=== PATIENT | female | born 1990 | race Caucasian/White ===

== ENCOUNTER 2024-02-17 14:47 | Emergency (ER) | payer OTHER, SELFPAY ==
[2024-02-17] MEDS ORDERED: Dicyclomine 20 MG TAB ONE (16:00)
[2024-02-17] MEDS ORDERED: Ondansetron ODT 4 MG TAB ONE (16:00)
[2024-02-17] MEDS ORDERED: Ipratropium/Albuterol 3 ML NEB ONE (16:07)
== END 2024-02-17 16:44 | disposition home or self-care (01) ==
LOC: CSHERS 14:47
DX: R11.2 Nausea with vomiting, unspecified (principal); R19.7 Diarrhea, unspecified
CPT/HCPCS: 99283; J7620; Q0162

== ENCOUNTER 2024-06-11 22:15 | Emergency (ER) | payer OTHER, SELFPAY ==
[2024-06-11] MEDS ORDERED: Ketorolac Tromethamine 30 MG (1 mL) VIAL ONE (22:38)
[2024-06-11 22:55] LABS: Bilirubin Neg (Negative); Blood, Urine Negative (Negative); Glucose, Urine (Dipstick) Normal (Negative); Ketone, Urine Negative (Negative); Leukocyte Negative (Negative); Nitrite Negative (Negative); Protein, Urine (Dipstick) 15 mg/dl (Neg-Trace)
[2024-06-11 22:56] LABS: Clarity Clear (Clear)
[2024-06-11 22:57] LABS: Pregnancy Test - Urine (BHCG) Negative (Negative); Pregu Control Background? CLEAR/WHITE (CLR/WHITE); Pregu Control Bar Appear? YES (CONTROL BAR)
[2024-06-11 23:03] LABS: Bacteria/HPF 2+ HPF (None Seen); CAUTI Indications for Culture Pelvic or flank pain; RBC/HPF 0-3 HPF (0-3)
[2024-06-11 23:05] LABS: Urine Culture Reflex No No
== END 2024-06-11 23:15 | disposition home or self-care (01) ==
LOC: CSHERS 22:15
DX: N39.0 Urinary tract infection, site not specified (principal)
CPT/HCPCS: 81001; 81025; 96372; 99284; J1885

== ENCOUNTER 2024-07-09 15:51 | Emergency (ER) | payer OTHER, SELFPAY ==
[2024-07-09] MEDS ORDERED: Dicyclomine 20 MG/2 ML VIAL ONE (16:22)
[2024-07-09] MEDS ORDERED: Ondansetron ODT 4 MG TAB ONE (16:23)
[2024-07-09 16:52] LABS: Bilirubin Neg (Negative); Blood, Urine 25 (Negative); Clarity Clear (Clear); Glucose, Urine (Dipstick) Normal (Negative); Ketone, Urine Negative (Negative); Leukocyte 25 (Negative); Nitrite Negative (Negative); Pregu Control Background? CLEAR/WHITE (CLR/WHITE); Pregu Control Bar Appear? YES (CONTROL BAR); Protein, Urine (Dipstick) Negative (Neg-Trace); Urobilinogen Normal mg/dL (Less than 2)
[2024-07-09 16:53] LABS: Pregnancy Test - Urine (BHCG) Negative (Negative)
[2024-07-09 17:00] LABS: Bacteria/HPF 1+ HPF (None Seen); CAUTI Indications for Culture Pelvic or flank pain; Mucous/LPF Rare LPF (<2+); RBC/HPF 0-3 HPF (0-3)
[2024-07-09 17:01] LABS: Urine Culture Reflex No No
== END 2024-07-09 17:34 | disposition home or self-care (01) ==
LOC: CSHERS 15:51
DX: R11.2 Nausea with vomiting, unspecified (principal); R10.9 Unspecified abdominal pain; F41.8 Other specified anxiety disorders; F31.9 Bipolar disorder, unspecified
CPT/HCPCS: 81001; 81025; 96372; 99284; Q0162

== ENCOUNTER 2025-02-05 09:06 | Emergency (ER) | payer OTHER ==
[2025-02-05 09:59] LABS: Glucose, Urine (Dipstick) Normal (Negative); Leukocyte Negative (Negative); Protein, Urine (Dipstick) 15 mg/dl (Neg-Trace); Specific Gravity, Urine 1.025 (1.005-1.030)
[2025-02-05 10:15] LABS: Bacteria/HPF 3+ HPF (None Seen); CAUTI Indications for Culture Pelvic or flank pain; RBC/HPF 0-3 HPF (0-3)
[2025-02-05 10:16] LABS: Urine Culture Reflex No No
[2025-02-05] MEDS ORDERED: Ketorolac Tromethamine 30 MG (1 mL) VIAL ONE (10:28)
[2025-02-05 10:37] LABS: #Basophils 0.03 10x3/uL (0.0-0.2); #Eosinophils 0.34 10x3/uL (0.0-0.5); #Monocytes 0.54 10x3/uL (0.0-1.1); #Neutrophils 3.96 10x3/uL (1.5-8.4); %Basophils 0.4 % (0.0-2.0); %Eosinophils 4.9 % (0.0-6.0); %Lymphocytes 29.6 % (18.0-47.0); %Monocytes 7.8 % (0.0-10.0); %Neutrophils 57.0 % (40.0-75.0); Hematocrit 37.7 % (34.9-44.5); Hemoglobin 13.0 g/dL (12.0-15.5); Mean Corpuscular Hemoglobin 31.6 pg (27.0-33.0); Mean Corpuscular Volume 91.7 fL (81.6-98.3); Platelet Count 263 10x3/uL (150-450); Red Blood Cell (RBC) Count 4.11 10x6/uL (3.90-5.03); White Blood Cell (WBC) Count 6.95 10x3/uL (3.5-10.5)
[2025-02-05 10:44] LABS: Pregnancy Test - Urine (BHCG) Negative (Negative); Pregu Control Background? CLEAR/WHITE (CLR/WHITE); Pregu Control Bar Appear? YES (CONTROL BAR)
[2025-02-05 10:51] LABS: ALT (SGPT) 15 U/L (Less than 34); AST (SGOT) 20 U/L (11-34); Albumin 4.1 g/dL (3.1-4.5); Alkaline Phosphatase 74 U/L (40-110); Anion Gap 15 mmol/L (10-20); BUN (Urea Nitrogen) 11 mg/dL (7.0-18.7); Bilirubin, Total 0.3 mg/dL (0.3-1.2); Calc. Creatinine Clearance 0 mL/min (70-130); Calcium 8.5 mg/dL (7.8-10.44); Carbon Dioxide 21 mmol/L (22-29); Chloride 107 mmol/L (98-107); Globulin 2.9 g/dL (2.4-3.5); Glucose 103 mg/dL (70-105); Potassium 4.1 mmol/L (3.5-5.1); Sodium 139 mmol/L (136-145)
[2025-02-05] MEDS ORDERED: Droperidol 5 MG/2 ML VIAL ONE (11:44)
== END 2025-02-05 12:15 | disposition home or self-care (01) ==
LOC: CSHERS 09:06
DX: M54.50 Low back pain, unspecified (principal); N39.0 Urinary tract infection, site not specified; Z55.6 Problems related to health literacy
CPT/HCPCS: 74176; 80053; 81001; 81025; 85025; 96374; 96375; J1790; J1885

== ENCOUNTER 2025-04-06 13:57 | Emergency (ER) | payer OTHER ==
[2025-04-06] MEDS ORDERED: Ondansetron PF 4 MG/2 ML Vial ONE (15:02)
[2025-04-06 15:23] LABS: #Basophils 0.03 10x3/uL (0.0-0.2); #Eosinophils 0.12 10x3/uL (0.0-0.5); #Monocytes 0.43 10x3/uL (0.0-1.1); #Neutrophils 5.56 10x3/uL (1.5-8.4); %Basophils 0.4 % (0.0-2.0); %Eosinophils 1.4 % (0.0-6.0); %Lymphocytes 26.2 % (18.0-47.0); %Monocytes 5.1 % (0.0-10.0); %Neutrophils 66.5 % (40.0-75.0); Hematocrit 39.9 % (34.9-44.5); Hemoglobin 13.9 g/dL (12.0-15.5); Mean Corpuscular Hemoglobin 32.1 pg (27.0-33.0); Mean Corpuscular Volume 92.1 fL (81.6-98.3); Platelet Count 308 10x3/uL (150-450); Red Blood Cell (RBC) Count 4.33 10x6/uL (3.90-5.03); White Blood Cell (WBC) Count 8.36 10x3/uL (3.5-10.5)
[2025-04-06 15:29] LABS: ALT (SGPT) 28 U/L (Less than 34); AST (SGOT) 36 U/L (11-34); Albumin 4.5 g/dL (3.1-4.5); Alkaline Phosphatase 85 U/L (40-110); Anion Gap 10 mmol/L (10-20); BUN (Urea Nitrogen) 11 mg/dL (7.0-18.7); Bilirubin, Total 0.3 mg/dL (0.3-1.2); Calc. Creatinine Clearance 0 mL/min (70-130); Calcium 9.2 mg/dL (7.8-10.44); Carbon Dioxide 27 mmol/L (22-29); Chloride 107 mmol/L (98-107); Globulin 3.0 g/dL (2.4-3.5); Glucose 89 mg/dL (70-105); Lipase 20 U/L (8-78); Potassium 3.9 mmol/L (3.5-5.1); Sodium 140 mmol/L (136-145)
[2025-04-06 15:31] LABS: Glucose, Urine (Dipstick) Normal (Negative); Leukocyte 25 (Negative); Protein, Urine (Dipstick) Negative (Neg-Trace); Specific Gravity, Urine 1.025 (1.005-1.030)
[2025-04-06 16:32] LABS: CAUTI Indications for Culture Pelvic or flank pain; RBC/HPF 0-3 HPF (0-3); WBC/HPF 0-3 HPF (0-3)
[2025-04-06 16:33] LABS: Bacteria/HPF None Seen HPF (None Seen); Mucous/LPF 2+ LPF (<2+); Urine Culture Reflex No No
== END 2025-04-06 17:41 | disposition home or self-care (01) ==
LOC: CSHERS 13:57
DX: R10.30 Lower abdominal pain, unspecified (principal); R19.7 Diarrhea, unspecified; R11.0 Nausea
CPT/HCPCS: 36415; 80053; 81001; 83690; 84702; 85025; 96361; 96372; 96374

== ENCOUNTER 2025-05-25 12:25 | Emergency (ER) | payer OTHER ==
[2025-05-25 13:12] LABS: Glucose, Urine (Dipstick) Normal (Negative); Leukocyte Negative (Negative); Protein, Urine (Dipstick) Negative (Neg-Trace); Specific Gravity, Urine 1.015 (1.005-1.030)
[2025-05-25 13:28] LABS: #Basophils 0.03 10x3/uL (0.0-0.2); #Eosinophils 0.17 10x3/uL (0.0-0.5); #Monocytes 0.58 10x3/uL (0.0-1.1); #Neutrophils 5.09 10x3/uL (1.5-8.4); %Basophils 0.4 % (0.0-2.0); %Eosinophils 2.2 % (0.0-6.0); %Lymphocytes 24.7 % (18.0-47.0); %Monocytes 7.4 % (0.0-10.0); %Neutrophils 65.0 % (40.0-75.0); Hematocrit 37.4 % (34.9-44.5); Hemoglobin 12.8 g/dL (12.0-15.5); Mean Corpuscular Hemoglobin 31.8 pg (27.0-33.0); Mean Corpuscular Volume 92.8 fL (81.6-98.3); Platelet Count 248 10x3/uL (150-450); Red Blood Cell (RBC) Count 4.03 10x6/uL (3.90-5.03); White Blood Cell (WBC) Count 7.82 10x3/uL (3.5-10.5)
[2025-05-25 14:03] LABS: ALT (SGPT) 24 U/L (Less than 34); AST (SGOT) 34 U/L (11-34); Albumin 4.2 g/dL (3.1-4.5); Alkaline Phosphatase 79 U/L (40-110); BUN (Urea Nitrogen) 11 mg/dL (7.0-18.7); Bilirubin, Total 0.5 mg/dL (0.3-1.2); Calc. Creatinine Clearance 0 mL/min (70-130); Calcium 9.2 mg/dL (7.8-10.44); Carbon Dioxide 27 mmol/L (22-29); Chloride 106 mmol/L (98-107); Globulin 2.7 g/dL (2.4-3.5); Glucose 107 mg/dL (70-105); Lipase 18 U/L (8-78); Potassium 4.4 mmol/L (3.5-5.1)
[2025-05-25 14:04] LABS: Bacteria/HPF 3+ HPF (None Seen); CAUTI Indications for Culture Pelvic or flank pain; RBC/HPF 0-3 HPF (0-3); WBC/HPF 0-3 HPF (0-3)
[2025-05-25 14:05] LABS: Urine Culture Reflex No No
[2025-05-25 14:07] LABS: BHCG - Serum Negative (NEGATIVE); Pregs Control Background? CLEAR/WHITE (CLR/WHITE); Pregs Control Bar Appear? YES (CONTROL BAR)
[2025-05-25 14:15] LABS: Sodium 139 mmol/L (136-145)
[2025-05-25 14:20] LABS: Anion Gap 10 mmol/L (10-20)
== END 2025-05-25 14:30 | disposition home or self-care (01) ==
LOC: CSHERS 12:25
DX: A08.4 Viral intestinal infection, unspecified (principal)
CPT/HCPCS: 36415; 80053; 81001; 83690; 84703; 85025; 99284; Q0162